=== PATIENT | male | born 1980 | race Hispanic/Latino ===

== ENCOUNTER 2018-05-15 14:55 | Emergency (ER) | payer SELFPAY ==
[2018-05-15 15:16] LABS: BASOPHILS % (AUTO) 0.6 % (0.0-5.0); EOSINOPHILS % (AUTO) 1.2 % (0.0-8.0); HEMATOCRIT 38.3 % (42-54); LYMPHOCYTES % (AUTO) 29.8 % (21.0-51.0); MEAN CORPUSCULAR HEMOGLOBIN 30.2 pg (27.0-33.0); MEAN CORPUSCULAR HGB CONC 33.8 g/dL (32.0-36.0); MEAN CORPUSCULAR VOLUME 89.6 fL (79-99); MONOCYTES % (AUTO) 8.2 % (3.0-13.0); NEUTROPHILS % (AUTO) 60.2 % (40.0-77.0); PLATELET COUNT (AUTO) 185 K/uL (130-400); RED BLOOD CELL COUNT(AUTO) 4.28 MIL/uL (4.50-6.20); RED CELL DISTRIBUTION WIDTH 13.7 % (11.0-15.5); WHITE BLOOD COUNT (AUTO) 4.8 K/uL (4.8-10.8)
[2018-05-15 15:31] LABS: AMPHET/METH SCREEN,URINE NEGATIVE (NEGATIVE); BARBITURATE SCREEN, URINE NEGATIVE (NEGATIVE); BENZODIAZEPINES SCREEN,URINE NEGATIVE (NEGATIVE); CANNABINOID SCREEN,URINE POSITIVE (NEGATIVE); COCAINE SCREEN,URINE POSITIVE (NEGATIVE); OPIATE SCREEN,URINE NEGATIVE (NEGATIVE); PHENCYCLIDINE SCREEN,URINE NEGATIVE (NEGATIVE)
[2018-05-15 15:34] LABS: AMMONIA 27 umol/L (11-32); INR 1.04 (0.85-1.15); PARTIAL THROMBOPLASTIN TIME 28.7 SEC (26.3-35.5); PROTHROMBIN TIME 10.9 SEC (9.6-11.6)
[2018-05-15 15:36] LABS: ALCOHOL, BLOOD 250 mg/dL (0-10)
[2018-05-15 15:46] LABS: CREATININE 0.5 mg/dL (0.5-1.5)
[2018-05-15 15:51] LABS: ALBUMIN 3.8 g/dL (3.5-5.0); BILIRUBIN,TOTAL 0.5 mg/dL (0.2-1.0); TOTAL PROTEIN, SERUM 8.7 g/dL (6.0-8.3)
[2018-05-15] MEDS ORDERED: LABETALOL HCL 5 MG/ML 20ML VIAL IV ONE (16:03)
== END 2018-05-15 19:39 | disposition home or self-care (01) ==
LOC: EDH 14:55
DX: I16.9 Hypertensive crisis, unspecified (principal); K29.00 Acute gastritis without bleeding; F10.20 Alcohol dependence, uncomplicated; F19.10 Other psychoactive substance abuse, uncomplicated; M10.9 Gout, unspecified; I10 Essential (primary) hypertension; Z86.73 Personal history of transient ischemic attack (TIA), and cerebral infarction without residual deficits; Z72.0 Tobacco use
CPT/HCPCS: 36415; 80053; 80305; 82140; 82270; 82550; 84484 ×2; 85025; 85610; 85730; 86850; 86900; 86901; 93005; 96374; 96375; 96376; 99291; G0480; J3490

== ENCOUNTER 2020-04-13 08:13 | Inpatient (IN) | payer SELFPAY ==
[~2020-04-13] VITALS: Ht 185.4 cm; Wt 151.7 kg
[2020-04-13] MEDS ORDERED: DILTIAZEM HCL 5 MG/ML 10 ML VIAL IV ONE ×2 (08:41→16:45)
[2020-04-13] MEDS ORDERED: SODIUM CHLORIDE 0.9% 500ML 500 ML IV ONE (08:43)
[2020-04-13] MEDS ORDERED: DILTIAZEM HCL 125 MG/25 ML VIAL IV ONE ×2 (08:44→21:10)
[2020-04-13 08:57] LABS: BASOPHILS % (AUTO) 0.5 % (0.0-5.0); EOSINOPHILS % (AUTO) 2.9 % (0.0-8.0); LYMPHOCYTES % (AUTO) 18.5 % (21.0-51.0); MEAN CORPUSCULAR HEMOGLOBIN 29.9 pg (27.0-33.0); MEAN CORPUSCULAR HGB CONC 32.4 g/dL (32.0-36.0); MONOCYTES % (AUTO) 14.9 % (3.0-13.0); NEUTROPHILS % (AUTO) 62.7 % (40.0-77.0); PLATELET COUNT (AUTO) 215 K/uL (130-400); RED BLOOD CELL COUNT(AUTO) 4.02 MIL/uL (4.50-6.20); RED CELL DISTRIBUTION WIDTH 12.5 % (11.0-15.5); WHITE BLOOD COUNT (AUTO) 5.6 K/uL (4.8-10.8)
[2020-04-13] MEDS ORDERED: ASPIRIN 325 MG TABLET ONE (08:58)
[2020-04-13 09:03] LABS: CREATININE 0.6 mg/dL (0.5-1.5); POTASSIUM 4.1 mmol/L (3.5-5.1)
[2020-04-13 09:07] LABS: ALBUMIN 3.6 g/dL (3.5-5.0); BILIRUBIN,TOTAL 0.6 mg/dL (0.2-1.0); TOTAL PROTEIN, SERUM 7.9 g/dL (6.0-8.3)
[2020-04-13 09:10] LABS: INR 0.98 (0.85-1.15); PARTIAL THROMBOPLASTIN TIME 28.2 SEC (26.3-35.5); PROTHROMBIN TIME 10.6 SEC (9.6-11.6)
[2020-04-13] MEDS ORDERED: ONDANSETRON HCL 4 MG/2 ML VIAL ONE ×2 (09:15→20:54)
[2020-04-13] MEDS ORDERED: FENTANYL CITRATE PF 50 MCG/1 ML 2ML VIAL ONE (09:17)
[2020-04-13 09:22] LABS: B-TYPE NATRIURETIC PEPTIDE 287 pg/mL (0-100)
[2020-04-13] MEDS ORDERED: METOPROLOL TARTRATE 1 MG/ML 5ML VIAL IV STA (11:03)
[2020-04-13] MEDS ORDERED: POTASSIUM CHLORIDE 10% ELIXIR 20 MEQ/15 ML UDCUP PO PRN (11:15)
[2020-04-13] MEDS ORDERED: MORPHINE SULFATE 4 MG/1ML SYG IV PRN (11:15)
[2020-04-13] MEDS ORDERED: ONDANSETRON HCL 4 MG/2 ML VIAL IV PRN ×2 (11:15→15:00)
[2020-04-13] MEDS ORDERED: PHARMACY COMMUNICATION MISC PRN ×2 (11:15→15:00)
[2020-04-13] MEDS ORDERED: HYDRALAZINE HCL 20 MG/ML VIAL IV PRN (11:15)
[2020-04-13] MEDS ORDERED: LACTULOSE 20 GM/30 ML UDCUP PO PRN (11:15)
[2020-04-13] MEDS ORDERED: LIDOCAINE HCL-MPF 1% 2ML VIAL IV PRN (11:15)
[2020-04-13] MEDS ORDERED: POTASSIUM CHLORIDE 20MEQ/100ML 100 ML IV PRN (11:15)
[2020-04-13] MEDS ORDERED: POTASSIUM CHLORIDE 20 MEQ ERTAB PO PRN (11:15)
[2020-04-13] MEDS ORDERED: HYDROCODONE/ACETAMINOPHEN 5/325 MG TAB PO PRN (11:15)
[2020-04-13] MEDS ORDERED: MORPHINE SULFATE 4 MG/1ML SYG ONE ×4 (11:16→20:55)
[2020-04-13] MEDS ORDERED: METOPROLOL TARTRATE 1 MG/ML 5ML VIAL IV SCH (11:47)
[2020-04-13] MEDS ORDERED: METOPROLOL TARTRATE 1 MG/ML 5ML VIAL IV ONE (12:49)
[2020-04-13] MEDS ORDERED: HYDROCODONE/ACETAMINOPHEN 5/325 MG TAB ONE (13:14)
[2020-04-13] MEDS ORDERED: THIAMINE HCL 100 MG, FOLIC ACID 1 MG, M.V.I. IV [ADULT] 10 ML in SODIUM CHLORIDE 0.9% 1... IV SCH (15:00)
[2020-04-13] MEDS ORDERED: LORAZEPAM 2 MG/ML 1 ML VIAL IVP PRN (15:00)
[2020-04-13 15:31] LABS: MAGNESIUM 1.7 mg/dL (1.80-2.40); PHOSPHORUS 3.9 mg/dL (2.5-4.9)
[2020-04-13] MEDS ORDERED: MAGNESIUM 2GM PREMIX 50ML 50 ML IV NR (17:30)
[2020-04-13] MEDS ORDERED: DILTIAZEM 125MG+100 ML NS 125 ML IV SCH (17:30)
[2020-04-13] MEDS ORDERED: METOPROLOL TARTRATE 25 MG TAB PO SCH ×2 (21:00)
[2020-04-13] MEDS ORDERED: ENOXAPARIN SODIUM 30 MG/0.3 ML SQ SCH (21:00)
[2020-04-13] MEDS ORDERED: ENOXAPARIN SODIUM 120 MG/0.8ML SQ SCH (21:00)
[2020-04-13] MEDS ORDERED: DILTIAZEM HCL 60 MG TABLET ONE (21:06)
[2020-04-13] MEDS ORDERED: ENOXAPARIN SODIUM 120 MG/0.8ML SQ ONE (21:06)
[2020-04-13] MEDS ORDERED: SODIUM CHLORIDE 0.9% 100 ML IV ONE (21:10)
[2020-04-13] MEDS ORDERED: MAGNESIUM 2GM PREMIX 50ML 50 ML IV ONE (21:15)
[2020-04-13] MEDS ORDERED: ALBUTEROL INHALER 90MCG/INH IH PRN (21:15)
[2020-04-13] MEDS ORDERED: ALBUTEROL SULFATE 0.083% 2.5 MG/3 ML INH IH PRN (21:15)
[2020-04-13] MEDS ORDERED: ALBUTEROL INHALER 90MCG/INH IH ONE (21:40)
[2020-04-13] MEDS: DILTIAZEM HCL 60 MG TABLET PO SCH (22:00)
[2020-04-13 22:07] LABS: AMPHET/METH SCREEN,URINE NEGATIVE (NEGATIVE); BARBITURATE SCREEN, URINE NEGATIVE (NEGATIVE); BENZODIAZEPINES SCREEN,URINE POSITIVE (NEGATIVE); CANNABINOID SCREEN,URINE POSITIVE (NEGATIVE); COCAINE SCREEN,URINE NEGATIVE (NEGATIVE); OPIATE SCREEN,URINE POSITIVE (NEGATIVE); PHENCYCLIDINE SCREEN,URINE NEGATIVE (NEGATIVE)
[2020-04-13 22:25] VITALS: BP 107/59
[2020-04-13 23:40] VITALS: BP 107/59
[2020-04-14 04:54] VITALS: BP 134/77
[2020-04-14] MEDS: DILTIAZEM HCL 60 MG TABLET PO SCH (05:53)
[2020-04-14 06:51] LABS: BASOPHILS % (AUTO) 0.6 % (0.0-5.0); EOSINOPHILS % (AUTO) 1.7 % (0.0-8.0); HEMATOCRIT 34.8 % (42-54); LYMPHOCYTES % (AUTO) 14.3 % (21.0-51.0); MEAN CORPUSCULAR HEMOGLOBIN 29.6 pg (27.0-33.0); MEAN CORPUSCULAR HGB CONC 31.3 g/dL (32.0-36.0); MEAN CORPUSCULAR VOLUME 94.6 fL (79-99); MONOCYTES % (AUTO) 12.8 % (3.0-13.0); NEUTROPHILS % (AUTO) 70.3 % (40.0-77.0); PLATELET COUNT (AUTO) 221 K/uL (130-400); RED BLOOD CELL COUNT(AUTO) 3.68 MIL/uL (4.50-6.20); RED CELL DISTRIBUTION WIDTH 12.8 % (11.0-15.5); WHITE BLOOD COUNT (AUTO) 6.6 K/uL (4.8-10.8)
[2020-04-14 07:09] LABS: CREATININE 0.6 mg/dL (0.5-1.5); MAGNESIUM 1.7 mg/dL (1.80-2.40); POTASSIUM 4.4 mmol/L (3.5-5.1)
[2020-04-14] MEDS ORDERED: NITROGLYCERIN 50 MG/D5% WATER 1 BOT ONE (07:11)
[2020-04-14] MEDS ORDERED: AMIODARONE HCL 50 MG/ML 3 ML VIAL ONE (07:11)
--- NOTE | 2020-04-14 07:30 | NUR ---
ASSESSMENT ENCOUNTERED PT A&OX3, CALM COOPERATIVE AND DOES NOT APPEAR TO BE IN ANY DISTRESS NOR ANY NEURO DEFICITS PRESENT. PT DENIES SOB, NAUSEA BUT DOES C/O LEFT RIB PAIN THAT PATIENT STATES DUE TO FALL. PT IS AMBULATORY, GAIT STEADY AND STRONG WITH STAND BY ASSIST. TELE MONITOR DISPLAYS ATRIAL FIBRILLATION WITH RATE OF 80-90 BEATS PER MINUTE, CARDIZEM DRIP DISCONTINUED. CALL LIGHT WITHIN REACH.
[2020-04-14 08:01] VITALS: BP 135/75
[2020-04-14] MEDS ORDERED: THIAMINE HCL 100 MG/ML 2ML VIAL IM SCH (09:00)
[2020-04-14] MEDS ORDERED: FOLIC ACID 1 MG TABLET PO SCH (09:00)
[2020-04-14] MEDS ORDERED: MULTIVITAMIN TABLET PO SCH (09:00)
--- NOTE | 2020-04-14 10:17 | NUR ---
DCP CM spoke to pt discussed dc plans. Pt is independent prior to admission, lives at home with spouse and child. Pt has a cane uses occasionally. Denies any other equipments/services. Feels safe to go back home, still drives, spouse able to assist with transportation and needs as necessary. DC plan to home once stable. CM to cont to follow up. Addendum: 04/14/20 at 1020 by OSVALDO COOPER LVN CM Amended: Links added.
--- NOTE | 2020-04-14 12:05 | NUR ---
SS-Referral for positive UDS, history of ETOH abuse. SW met wit pt. who is awake, alert, calm and cooperative. Pt. reports that he is admitted for rib fractures after a fall at home. Pt. resides at home with spouse and adult child. 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 Pt. reports decades use of ETOH and marijuana use when available. According to pt., he has attended AA meetings and currently in Anger Management class under conditions of his probation for altercation with law enforcement. Pt. reports that he has gone through periods of sobriety but eventually "goes off". SW provided information on Substance Use Disorder Services through [facility]; pt. receptive to receiving pamphlets/information. Pt. also provided with [facility]. Pt. denied suicidal thoughts, ideations or depressive symptoms. Pt. reported a strong support system among family and friends. All utilities reportedly connected in the home and spouse will provide transportation home upon discharge. Pt. reported that Financial Counselors have already spoken with him regarding assistance. Pt. denied/verbalized no SS needs or concerns.
[2020-04-14] MEDS ORDERED: MAGNESIUM 2GM PREMIX 50ML 50 ML IV SCH (12:12)
[2020-04-14] MEDS ORDERED: SODIUM BICARB 50MEQ 50ML VIAL ONE (12:47)
[2020-04-14] MEDS ORDERED: NOREPINEPHRINE BITARTRATE 1 MG/1 ML ML IV ONE (12:48)
--- NOTE | 2020-04-14 15:00 | NUR ---
DISCHARGE INSTRUCTIONS GIVEN, PIV REMOVED AND INTACT, DISCHARGED HOME TO FAMILY VEHICLE VIA WHEELCHAIR.
== END 2020-04-14 15:00 | disposition home or self-care (01) | DRG 309 ==
LOC: EDH 08:13 → OBSVTOIN 08:14 → EDHIP 08:14 → 4CH 22:26
PROVIDERS: ADMIT Hospitalist; ATTEND Hospitalist
DX: I48.91 Unspecified atrial fibrillation (principal); S22.42XA Multiple fractures of ribs, left side, initial encounter for closed fracture; Z68.41 Body mass index [BMI] 40.0-44.9, adult; I24.8 Other forms of acute ischemic heart disease; I10 Essential (primary) hypertension; W06.XXXA Fall from bed, initial encounter; F12.10 Cannabis abuse, uncomplicated; F11.10 Opioid abuse, uncomplicated; F15.10 Other stimulant abuse, uncomplicated; M10.9 Gout, unspecified; E66.01 Morbid (severe) obesity due to excess calories; Y93.89 Activity, other specified; Y92.89 Other specified places as the place of occurrence of the external cause; Y99.8 Other external cause status; Z82.3 Family history of stroke; Z82.49 Family history of ischemic heart disease and other diseases of the circulatory system; Z83.3 Family history of diabetes mellitus; Z86.73 Personal history of transient ischemic attack (TIA), and cerebral infarction without residual deficits; Z87.891 Personal history of nicotine dependence
CPT/HCPCS: 36415; 71045; 71250; 73030; 74176; 80048; 80053; 80305; 82550; 83735; 83880; 84100; 84443; 84484; 85025; 85610; 85730; 93005; 93306; 93356; 94664; 99291; G0378; J0282; J1650; J2270; J2405; J3010; J3411; J3475; J3490; J7030; J7040

== ENCOUNTER 2021-02-21 07:26 | Emergency (ER) | payer SELFPAY ==
[~2021-02-21] VITALS: Ht 185.4 cm; Wt 136.1 kg
[2021-02-21 07:28] VITALS: BP 143/98
[2021-02-21 08:24] LABS: BASOPHILS % (AUTO) 0.7 % (0.0-5.0); EOSINOPHILS % (AUTO) 1.4 % (0.0-8.0); HEMATOCRIT 38.1 % (42-54); LYMPHOCYTES % (AUTO) 23.5 % (21.0-51.0); MEAN CORPUSCULAR HEMOGLOBIN 25.7 pg (27.0-33.0); MEAN CORPUSCULAR HGB CONC 30.4 g/dL (32.0-36.0); MEAN CORPUSCULAR VOLUME 84.3 fL (79-99); MONOCYTES % (AUTO) 8.7 % (3.0-13.0); NEUTROPHILS % (AUTO) 65.5 % (40.0-77.0); PLATELET COUNT (AUTO) 252 K/uL (130-400); RED BLOOD CELL COUNT(AUTO) 4.52 MIL/uL (4.50-6.20); RED CELL DISTRIBUTION WIDTH 17.4 % (11.0-15.5); WHITE BLOOD COUNT (AUTO) 5.9 K/uL (4.8-10.8)
[2021-02-21 08:28] VITALS: BP 133/95
[2021-02-21 08:33] LABS: INR 1.32 (0.85-1.15)
[2021-02-21 08:34] LABS: PARTIAL THROMBOPLASTIN TIME 30.1 SEC (26.3-35.5)
[2021-02-21 08:42] LABS: AMPHET/METH SCREEN,URINE NEGATIVE (NEGATIVE); APPEARANCE,URINE Clear (CLEAR); BARBITURATE SCREEN, URINE NEGATIVE (NEGATIVE); BENZODIAZEPINES SCREEN,URINE NEGATIVE (NEGATIVE); BILIRUBIN,URINE Negative (NEGATIVE); CANNABINOID SCREEN,URINE POSITIVE (NEGATIVE); COCAINE SCREEN,URINE POSITIVE (NEGATIVE); COLOR,URINE Dark Yellow (YELLOW); GLUCOSE, URINE (UA) Negative (NEGATIVE); KETONES,URINE Negative (NEGATIVE); LEUKOCYTE ESTERASE ,URINE Negative (NEGATIVE); NITRATE,URINE Negative (NEGATIVE); OCCULT BLOOD,URINE Negative (NEGATIVE); OPIATE SCREEN,URINE NEGATIVE (NEGATIVE); PHENCYCLIDINE SCREEN,URINE NEGATIVE (NEGATIVE); PROTEIN,URINE Negative (NEGATIVE); UROBILINOGEN,URINE >=8.0 mg/dL (0.2-1.0)
[2021-02-21 08:45] LABS: ALBUMIN 3.5 g/dL (3.5-5.0); BILIRUBIN,TOTAL 1.4 mg/dL (0.2-1.0); CREATININE 0.7 mg/dL (0.5-1.5); TOTAL PROTEIN, SERUM 7.9 g/dL (6.0-8.3); TROPONIN I 0.04 ng/mL (0.00-0.06)
[2021-02-21 08:47] LABS: B-TYPE NATRIURETIC PEPTIDE 478 pg/mL (0-100)
[2021-02-21 08:51] LABS: BACTERIA,URINE Rare /HPF (None Seen); RBC,URINE 0-1 /HPF (0-1); WBC,URINE 0-1 /HPF (0-1)
[2021-02-21 08:52] LABS: SQUAMOUS EPITHELIAL CELL,UR Few /HPF (0-2)
[2021-02-21 08:52] LABS: POTASSIUM 3.9 mmol/L (3.5-5.1)
[2021-02-21] MEDS ORDERED: FUROSEMIDE 40MG VIAL IV SCH (09:00)
[2021-02-21 09:29] VITALS: BP 132/88
[2021-02-21 10:32] VITALS: BP 130/90
[2021-02-21] MEDS ORDERED: DILT120C12 PO (11:00)
[2021-02-21] MEDS ORDERED: APIX5TAB PO (11:00)
[2021-02-21] MEDS ORDERED: FURO20TA6 PO (11:01)
== END 2021-02-21 11:28 | disposition home or self-care (01) ==
LOC: EDH 07:26
DX: I48.91 Unspecified atrial fibrillation (principal); F19.10 Other psychoactive substance abuse, uncomplicated; I11.0 Hypertensive heart disease with heart failure; I50.9 Heart failure, unspecified; E11.9 Type 2 diabetes mellitus without complications; F41.9 Anxiety disorder, unspecified; E66.01 Morbid (severe) obesity due to excess calories; Z79.01 Long term (current) use of anticoagulants; Z79.899 Other long term (current) drug therapy
CPT/HCPCS: 36415; 71045; 80053; 80305; 81001; 82550; 83874; 83880; 84484; 85025; 85610; 85730; 93005; 96374; 99285; J1940

== ENCOUNTER 2021-11-01 13:56 | Emergency (ER) | payer OTHER ==
[~2021-11-01] VITALS: Ht 182.9 cm; Wt 141.1 kg
[~2021-11-01 13:56] MED LIST: APIX5TAB PO; CLIN-141 PO; DILT120C12 PO; FURO20TA6 PO
[2021-11-01 14:20] LABS: BASOPHILS % (AUTO) 0.8 % (0.0-5.0); EOSINOPHILS % (AUTO) 2.3 % (0.0-8.0); HEMATOCRIT 46.6 % (42-54); LYMPHOCYTES % (AUTO) 37.3 % (21.0-51.0); MEAN CORPUSCULAR HEMOGLOBIN 25.3 pg (27.0-33.0); MEAN CORPUSCULAR HGB CONC 30.3 g/dL (32.0-36.0); MEAN CORPUSCULAR VOLUME 83.5 fL (79-99); MONOCYTES % (AUTO) 8.9 % (3.0-13.0); NEUTROPHILS % (AUTO) 50.5 % (40.0-77.0); PLATELET COUNT (AUTO) 196 K/uL (130-400); RED BLOOD CELL COUNT(AUTO) 5.58 MIL/uL (4.50-6.20); RED CELL DISTRIBUTION WIDTH 18.9 % (11.0-15.5); WHITE BLOOD COUNT (AUTO) 5.2 K/uL (4.8-10.8)
[2021-11-01 14:24] LABS: APPEARANCE,URINE Clear (CLEAR); BILIRUBIN,URINE Negative (NEGATIVE); COLOR,URINE Yellow (YELLOW); GLUCOSE, URINE (UA) Negative (NEGATIVE); KETONES,URINE Negative (NEGATIVE); LEUKOCYTE ESTERASE ,URINE Negative (NEGATIVE); NITRATE,URINE Negative (NEGATIVE); OCCULT BLOOD,URINE Negative (NEGATIVE); PROTEIN,URINE Negative (NEGATIVE)
[2021-11-01 14:29] LABS: CREATININE 0.6 mg/dL (0.5-1.5); POTASSIUM 4.7 mmol/L (3.5-5.1)
[2021-11-01 14:34] LABS: ALBUMIN 3.5 g/dL (3.5-5.0); BILIRUBIN,TOTAL 1.1 mg/dL (0.2-1.0); TOTAL PROTEIN, SERUM 8.1 g/dL (6.0-8.3)
[2021-11-01 15:07] VITALS: BP 107/83
[2021-11-01] MEDS ORDERED: MUPI22OI2 TP (15:33)
== END 2021-11-01 15:46 | disposition home or self-care (01) ==
LOC: EDH 13:56
DX: L03.116 Cellulitis of left lower limb (principal); I48.91 Unspecified atrial fibrillation; I11.0 Hypertensive heart disease with heart failure; I50.9 Heart failure, unspecified
CPT/HCPCS: 36415; 73590; 80053; 81003; 83605; 85025; 87040; 93971

== ENCOUNTER 2022-05-19 11:39 | Emergency (ER) | payer OTHER ==
[~2022-05-19] VITALS: Ht 182.9 cm; Wt 124.7 kg
[~2022-05-19 11:39] MED LIST changes: +MUPI22OI2 TP
[2022-05-19 11:51] VITALS: BP 124/84
[2022-05-19] MEDS ORDERED: ACETAMINOPHEN 500 MG TABLET PO ONE (13:00)
[2022-05-19 13:18] LABS: BASOPHILS % (AUTO) 0.2 % (0.0-5.0); EOSINOPHILS % (AUTO) 0.1 % (0.0-8.0); LYMPHOCYTES % (AUTO) 13.4 % (21.0-51.0); MEAN CORPUSCULAR HEMOGLOBIN 31.3 pg (27.0-33.0); MEAN CORPUSCULAR HGB CONC 34.8 g/dL (32.0-36.0); MEAN CORPUSCULAR VOLUME 89.8 fL (79-99); MONOCYTES % (AUTO) 4.6 % (3.0-13.0); NEUTROPHILS % (AUTO) 81.2 % (40.0-77.0); PLATELET COUNT (AUTO) 270 K/uL (130-400); RED BLOOD CELL COUNT(AUTO) 5.12 MIL/uL (4.50-6.20); RED CELL DISTRIBUTION WIDTH 11.7 % (11.0-15.5); WHITE BLOOD COUNT (AUTO) 9.5 K/uL (4.8-10.8)
[2022-05-19 13:42] LABS: CREATININE 0.7 mg/dL (0.5-1.5); POTASSIUM 4.2 mmol/L (3.5-5.1)
[2022-05-19 13:44] LABS: CRP QUANTITATIVE 5.9 mg/L (0.00-9.0); TOTAL PROTEIN, SERUM 8.6 g/dL (6.0-8.3)
== END 2022-05-19 14:35 | disposition home or self-care (01) ==
LOC: EDH 11:39
DX: S81.802A Unspecified open wound, left lower leg, initial encounter (principal); I48.91 Unspecified atrial fibrillation; I11.0 Hypertensive heart disease with heart failure; I50.9 Heart failure, unspecified; E66.01 Morbid (severe) obesity due to excess calories; Z68.37 Body mass index [BMI] 37.0-37.9, adult; Z79.899 Other long term (current) drug therapy; Z79.01 Long term (current) use of anticoagulants; X58.XXXA Exposure to other specified factors, initial encounter; Y93.89 Activity, other specified; Y92.89 Other specified places as the place of occurrence of the external cause; Y99.8 Other external cause status
CPT/HCPCS: 36415; 80053; 83605; 85025; 86140; 87070; 87076

== ENCOUNTER 2022-07-29 20:09 | Emergency (ER) | payer OTHER ==
[~2022-07-29] VITALS: Ht 185.4 cm; Wt 113.4 kg
[2022-07-29 20:49] LABS: BASOPHILS % (AUTO) 0.5 % (0.0-5.0); HEMATOCRIT 39.2 % (42-54); LYMPHOCYTES % (AUTO) 22.2 % (21.0-51.0); MEAN CORPUSCULAR HEMOGLOBIN 32.4 pg (27.0-33.0); MEAN CORPUSCULAR HGB CONC 35.7 g/dL (32.0-36.0); MEAN CORPUSCULAR VOLUME 90.7 fL (79-99); MONOCYTES % (AUTO) 16.1 % (3.0-13.0); NEUTROPHILS % (AUTO) 59.5 % (40.0-77.0); PLATELET COUNT (AUTO) 134 K/uL (130-400); RED BLOOD CELL COUNT(AUTO) 4.32 MIL/uL (4.50-6.20); RED CELL DISTRIBUTION WIDTH 11.9 % (11.0-15.5); WHITE BLOOD COUNT (AUTO) 4.1 K/uL (4.8-10.8)
[2022-07-29 21:01] LABS: ALBUMIN 3.6 g/dL (3.5-5.0); CREATININE 0.7 mg/dL (0.5-1.5); POTASSIUM 3.2 mmol/L (3.5-5.1)
[2022-07-29 21:06] LABS: TOTAL PROTEIN, SERUM 6.6 g/dL (6.0-8.3)
[2022-07-29 21:28] LABS: AMPHET/METH SCREEN,URINE NEGATIVE (NEGATIVE); BARBITURATE SCREEN, URINE NEGATIVE (NEGATIVE); BENZODIAZEPINES SCREEN,URINE POSITIVE (NEGATIVE); CANNABINOID SCREEN,URINE POSITIVE (NEGATIVE); COCAINE SCREEN,URINE NEGATIVE (NEGATIVE); OPIATE SCREEN,URINE NEGATIVE (NEGATIVE); PHENCYCLIDINE SCREEN,URINE NEGATIVE (NEGATIVE)
[2022-07-30] MEDS ORDERED: POTASSIUM BICARB/CIT AC 25 MEQ TABLET.EFF PO ONE (01:00)
[2022-07-30 01:47] VITALS: BP 149/99
== END 2022-07-30 01:55 | disposition home or self-care (01) ==
LOC: EDH 20:09
DX: E87.6 Hypokalemia (principal); E87.1 Hypo-osmolality and hyponatremia; I48.91 Unspecified atrial fibrillation; F10.10 Alcohol abuse, uncomplicated; I11.0 Hypertensive heart disease with heart failure; I50.9 Heart failure, unspecified; M10.9 Gout, unspecified; Z79.899 Other long term (current) drug therapy; Z79.01 Long term (current) use of anticoagulants; Y90.9 Presence of alcohol in blood, level not specified
CPT/HCPCS: 36415; 70450; 71045; 80053; 80305; 84484; 85025; 93005

== ENCOUNTER 2023-02-15 21:44 | Inpatient (IN) | payer OTHER ==
[~2023-02-15] VITALS: Ht 172.7 cm; Wt 114.8 kg
[2023-02-15 22:46] LABS: BASOPHILS % (AUTO) 0.7 % (0.0-5.0); EOSINOPHILS % (AUTO) 0.7 % (0.0-8.0); HEMATOCRIT 42.2 % (42-54); MEAN CORPUSCULAR HEMOGLOBIN 31.4 pg (27.0-33.0); MEAN CORPUSCULAR HGB CONC 34.1 g/dL (32.0-36.0); MEAN CORPUSCULAR VOLUME 91.9 fL (79-99); MONOCYTES % (AUTO) 8.5 % (3.0-13.0); NEUTROPHILS % (AUTO) 50.9 % (40.0-77.0); PLATELET COUNT (AUTO) 166 K/uL (130-400); RED BLOOD CELL COUNT(AUTO) 4.59 MIL/uL (4.50-6.20); RED CELL DISTRIBUTION WIDTH 13.6 % (11.0-15.5); WHITE BLOOD COUNT (AUTO) 4.3 K/uL (4.8-10.8)
[2023-02-15 23:17] LABS: B-TYPE NATRIURETIC PEPTIDE 43 pg/mL (0-100)
[2023-02-15 23:28] LABS: INR 1.06 (0.85-1.15); PROTHROMBIN TIME 12.2 SEC (9.6-11.6)
[2023-02-15 23:28] LABS: APPEARANCE,URINE CLEAR (CLEAR); BILIRUBIN,URINE NEGATIVE (NEGATIVE); COLOR,URINE COLORLESS (YELLOW); GLUCOSE, URINE (UA) NEGATIVE (NEGATIVE); KETONES,URINE NEGATIVE (NEGATIVE); LEUKOCYTE ESTERASE ,URINE NEGATIVE Leu/uL (NEGATIVE); NITRATE,URINE NEGATIVE (NEGATIVE); OCCULT BLOOD,URINE NEGATIVE (NEGATIVE); PROTEIN,URINE NEGATIVE (NEGATIVE); UROBILINOGEN,URINE 0.2 mg/dL (0.2-1.0)
[2023-02-15 23:40] LABS: CARBON DIOXIDE 25 mmol/L (21-32); CHLORIDE 98 mmol/L (101-111); CREATININE 0.6 mg/dL (0.5-1.5); GLOMERULAR FILTR. RATE CALC 122 mL/min (>90); GLUCOSE,RANDOM 101 mg/dL (70-105); POTASSIUM 4.3 mmol/L (3.5-5.1); SODIUM SERUM 136 mmol/L (136-145); UREA NITROGEN, BLOOD 1 mg/dL (7-18)
[2023-02-15 23:46] LABS: ALANINE AMINOTRANSFERASE 27 U/L (12-78); ALBUMIN 3.6 g/dL (3.5-5.0); ASPARTATE AMINOTRANSFERASE 27 U/L (10-37); TOTAL PROTEIN, SERUM 7.4 g/dL (6.0-8.3)
[2023-02-15 23:47] LABS: ACETAMINOPHEN < 1 mcg/mL (10-29); SALICYLATE < 2.8 mg/dL (2.8-20.0)
[2023-02-16] MEDS ORDERED: DILTIAZEM 25MG INJ IVP ONE (01:00)
[2023-02-16] MEDS ORDERED: AMIODARONE 150MG VIAL IV STA (01:29)
[2023-02-16] MEDS ORDERED: DILTIAZEM 125 MG/25 ML INJ IV ONE ×2 (01:40→05:38)
[2023-02-16] MEDS: DILTIAZEM 125 MG/25 ML INJ 125 MG in 0.9%NACL 100ML 100 ML IV SCH (01:48)
[2023-02-16] MEDS ORDERED: LORAZEPAM 2 MG/ML 1 ML VIAL ONE (01:55)
[2023-02-16] MEDS ORDERED: DILTIAZEM 125 MG/25 ML INJ 125 MG in 0.9%NACL 100ML 100 ML IV SCH (02:00)
[2023-02-16] MEDS: DEXTROSE 5 % AND 0.9 % NACL 1,000 ML IV SCH ×3 (02:26→18:54)
[2023-02-16] MEDS ORDERED: DiphenhydrAMINE HCL 50 MG/ML VIAL IV PRN (02:30)
[2023-02-16] MEDS ORDERED: LACTULOSE 20 GM/30 ML UDCUP PO PRN (02:30)
[2023-02-16] MEDS ORDERED: 0.9%NACL 1000ML 1,000 ML IV ONE (02:30)
[2023-02-16] MEDS ORDERED: MAG/ALUM/SIMETH 30 ML UDCUP PO PRN (02:30)
[2023-02-16] MEDS ORDERED: ONDANSETRON 4MG INJ IV PRN (02:30)
[2023-02-16] MEDS ORDERED: ACETAMINOPHEN 325 MG TAB PO PRN (02:30)
[2023-02-16] MEDS ORDERED: LORAZEPAM 2 MG/ML 1 ML VIAL IVP ONE ×2 (03:30)
[2023-02-16] MEDS ORDERED: ENOXAPARIN SODIUM 40 MG/0.4 ML SYRINGE SQ SCH (09:00)
[2023-02-16] MEDS: PANTOPRAZOLE 40 MG/VIAL IVP SCH (09:35)
[2023-02-16] MEDS: ASPIRIN 81 MG EC TAB PO SCH (09:36)
[2023-02-16] MEDS: CHLORDIAZEPOXIDE HCL 25 MG CAP PO SCH ×3 (09:36→20:16)
[2023-02-16] MEDS: M.V.I. IV [ADULT] 10 ML, FOLIC ACID 1 MG, THIAMINE HCL 100 MG in 0.9%NACL 1000ML 1,000 ML IV SCH (10:05)
[2023-02-16] MEDS: LORAZEPAM 2 MG/ML 1 ML VIAL IVP PRN ×2 (12:37→19:21)
[2023-02-16] MEDS ORDERED: DILT180T12 PO (13:54)
[2023-02-16] MEDS ORDERED: METO-391 PO (13:54)
[2023-02-16] MEDS ORDERED: FOLI0.4T6 PO (13:54)
[2023-02-16] MEDS ORDERED: SACU1TAB PO (13:54)
[2023-02-16] MEDS ORDERED: FURO20TA4 PO (13:54)
[2023-02-16] MEDS ORDERED: DILT60TA3 PO (13:54)
[2023-02-16] MEDS ORDERED: WARF-57 PO (13:54)
[2023-02-16] MEDS ORDERED: VITA-16 PO (13:54)
[2023-02-16] MEDS ORDERED: PROMETHAZINE HCL 25 MG/ML 1ML AMPULE IM ONE (15:06)
[2023-02-16] MEDS ORDERED: WARFARIN SODIUM 7.5 MG TAB PO SCH (16:00)
[2023-02-16] MEDS: ENOXAPARIN SODIUM 80 MG/0.8 ML SQ SCH (20:16)
[2023-02-16] MEDS: METOPROLOL SUCCINATE 50 MG TAB.SR.24H PO SCH (20:16)
[2023-02-16] MEDS: SACUBITRIL/VALSARTAN 1 EACH TABLET PO SCH (20:16)
[2023-02-16] MEDS: ACETAMINOPHEN 325 MG TAB PO PRN (22:54)
[2023-02-17 00:55] VITALS: BP 136/85
[2023-02-17] MEDS ORDERED: DILTIAZEM 125MG+100 ML NS 125 ML IV ONE ×2 (02:44→03:03)
[2023-02-17] MEDS: DEXTROSE 5 % AND 0.9 % NACL 1,000 ML IV SCH ×3 (04:04→20:45)
[2023-02-17] MEDS: DILTIAZEM 125 MG/25 ML INJ 125 MG in 0.9%NACL 100ML 100 ML IV SCH ×2 (04:04→20:47)
[2023-02-17 04:59] VITALS: BP 131/97
[2023-02-17 07:29] VITALS: BP 135/80
[2023-02-17] MEDS: METOPROLOL SUCCINATE 50 MG TAB.SR.24H PO SCH (09:43)
[2023-02-17] MEDS: ASPIRIN 81 MG EC TAB PO SCH (09:43)
[2023-02-17] MEDS: ENOXAPARIN SODIUM 80 MG/0.8 ML SQ SCH (09:43)
[2023-02-17] MEDS: PANTOPRAZOLE 40 MG/VIAL IVP SCH (09:43)
[2023-02-17] MEDS: SACUBITRIL/VALSARTAN 1 EACH TABLET PO SCH ×2 (09:44→20:44)
[2023-02-17] MEDS: CHLORDIAZEPOXIDE HCL 25 MG CAP PO SCH ×3 (09:44→20:44)
[2023-02-17] MEDS ORDERED: WARFARIN SODIUM 7.5 MG TAB PO ONE (10:00)
[2023-02-17] MEDS: M.V.I. IV [ADULT] 10 ML, FOLIC ACID 1 MG, THIAMINE HCL 100 MG in 0.9%NACL 1000ML 1,000 ML IV SCH (10:02)
[2023-02-17 11:17] LABS: BASOPHILS % (AUTO) 0.3 % (0.0-5.0); EOSINOPHILS % (AUTO) 0.7 % (0.0-8.0); HEMATOCRIT 39.2 % (42-54); LYMPHOCYTES % (AUTO) 11.1 % (21.0-51.0); MEAN CORPUSCULAR HEMOGLOBIN 31.8 pg (27.0-33.0); MEAN CORPUSCULAR HGB CONC 33.7 g/dL (32.0-36.0); MEAN CORPUSCULAR VOLUME 94.5 fL (79-99); MONOCYTES % (AUTO) 8.7 % (3.0-13.0); PLATELET COUNT (AUTO) 146 K/uL (130-400); RED BLOOD CELL COUNT(AUTO) 4.15 MIL/uL (4.50-6.20); RED CELL DISTRIBUTION WIDTH 13.7 % (11.0-15.5); WHITE BLOOD COUNT (AUTO) 6.1 K/uL (4.8-10.8)
[2023-02-17 11:23] LABS: CREATININE 0.7 mg/dL (0.5-1.5); POTASSIUM 3.5 mmol/L (3.5-5.1)
[2023-02-17 11:30] LABS: ALBUMIN 3.3 g/dL (3.5-5.0); MAGNESIUM 1.3 mg/dL (1.80-2.40); TOTAL PROTEIN, SERUM 6.8 g/dL (6.0-8.3)
[2023-02-17 11:58] VITALS: BP 114/78
[2023-02-17] MEDS ORDERED: POTASSIUM CHLORIDE 20MEQ/100ML 100 ML IV PRN (12:00)
[2023-02-17] MEDS ORDERED: POTASSIUM CHLORIDE 10% ELIXIR 20 MEQ/15 ML UDCUP PO PRN (12:00)
[2023-02-17] MEDS: KCL 20 MEQ ERTAB PO PRN ×2 (12:13→14:21)
[2023-02-17] MEDS: KETOROLAC 15MG/ML VIAL (15MG/ML) IV PRN ×2 (12:13→18:13)
[2023-02-17] MEDS: MAGNESIUM 2GM PREMIX 50ML 50 ML IV PRN (12:14)
[2023-02-17 16:52] VITALS: BP 135/99
[2023-02-17 19:30] VITALS: BP 108/94
[2023-02-17] MEDS: ENOXAPARIN SODIUM 120 MG/0.8ML SQ SCH (20:44)
[2023-02-17] MEDS: COLCHICINE 0.6 MG TABLET PO SCH (20:44)
[2023-02-17] MEDS: ACETAMINOPHEN 325 MG TAB PO PRN (20:46)
[2023-02-18] VITALS: BP 131/76
[2023-02-18] MEDS: DEXTROSE 5 % AND 0.9 % NACL 1,000 ML IV SCH ×3 (02:30→17:55)
[2023-02-18 03:43] VITALS: BP 130/74
[2023-02-18 04:09] LABS: ALBUMIN 3.1 g/dL (3.5-5.0); CREATININE 0.6 mg/dL (0.5-1.5); MAGNESIUM 1.8 mg/dL (1.80-2.40); POTASSIUM 3.6 mmol/L (3.5-5.1); TOTAL PROTEIN, SERUM 6.9 g/dL (6.0-8.3)
[2023-02-18 07:32] VITALS: BP 122/67
[2023-02-18] MEDS: COLCHICINE 0.6 MG TABLET PO SCH ×2 (07:55→21:12)
[2023-02-18] MEDS: MAGNESIUM 2GM PREMIX 50ML 50 ML IV PRN (07:55)
[2023-02-18] MEDS: KCL 20 MEQ ERTAB PO PRN ×2 (07:55→16:08)
[2023-02-18] MEDS: SACUBITRIL/VALSARTAN 1 EACH TABLET PO SCH ×2 (07:55→21:12)
[2023-02-18] MEDS: ASPIRIN 81 MG EC TAB PO SCH (07:55)
[2023-02-18] MEDS: PANTOPRAZOLE 40 MG/VIAL IVP SCH (07:55)
[2023-02-18] MEDS: ENOXAPARIN SODIUM 120 MG/0.8ML SQ SCH (07:57)
[2023-02-18] MEDS: CHLORDIAZEPOXIDE HCL 25 MG CAP PO SCH ×3 (07:59→21:12)
[2023-02-18] MEDS ORDERED: WARFARIN SODIUM 7.5 MG TAB PO SCH (09:00)
[2023-02-18 09:09] LABS: INR 1.11 (0.85-1.15); PROTHROMBIN TIME 12.8 SEC (9.6-11.6)
[2023-02-18 09:11] LABS: PARTIAL THROMBOPLASTIN TIME 37.5 SEC (26.3-35.5)
[2023-02-18] MEDS: SOLU-MEDROL 40MG VIAL IVP SCH (09:36)
[2023-02-18] MEDS: M.V.I. IV [ADULT] 10 ML, FOLIC ACID 1 MG, THIAMINE HCL 100 MG in 0.9%NACL 1000ML 1,000 ML IV SCH (09:37)
[2023-02-18] MEDS: KETOROLAC 15MG/ML VIAL (15MG/ML) IV PRN (10:27)
[2023-02-18] MEDS ORDERED: ARTIFICAL TEARS SOL 15 ML OU ONE (11:00)
[2023-02-18 12:01] VITALS: BP 118/77
[2023-02-18] MEDS: DILTIAZEM 125 MG/25 ML INJ 125 MG in 0.9%NACL 100ML 100 ML IV SCH (14:17)
[2023-02-18 16:09] VITALS: BP 133/88
[2023-02-18 19:00] VITALS: BP 128/72
[2023-02-18] MEDS: APIXABAN 5 MG TABLET PO SCH (21:13)
[2023-02-19] VITALS: BP 122/71
[2023-02-19] MEDS: DEXTROSE 5 % AND 0.9 % NACL 1,000 ML IV SCH (02:50)
[2023-02-19 03:00] VITALS: BP 114/75
[2023-02-19 07:25] VITALS: BP 121/83
[2023-02-19] MEDS: DILTIAZEM 125 MG/25 ML INJ 125 MG in 0.9%NACL 100ML 100 ML IV SCH (07:31)
[2023-02-19] MEDS: ASPIRIN 81 MG EC TAB PO SCH (08:13)
[2023-02-19] MEDS: SOLU-MEDROL 40MG VIAL IVP SCH (08:13)
[2023-02-19] MEDS: APIXABAN 5 MG TABLET PO SCH (08:13)
[2023-02-19] MEDS: PANTOPRAZOLE 40 MG/VIAL IVP SCH (08:13)
[2023-02-19] MEDS: COLCHICINE 0.6 MG TABLET PO SCH ×2 (08:13→20:38)
[2023-02-19] MEDS: SACUBITRIL/VALSARTAN 1 EACH TABLET PO SCH ×2 (08:14→20:38)
[2023-02-19] MEDS: CHLORDIAZEPOXIDE HCL 25 MG CAP PO SCH ×3 (08:14→20:38)
[2023-02-19] MEDS ORDERED: METOPROLOL SUCCINATE 50 MG TAB.SR.24H PO ONE (09:00)
[2023-02-19] MEDS: POTASSIUM CHLORIDE 10MEQ SR TAB PO SCH (09:10)
[2023-02-19] MEDS: FUROSEMIDE 20 MG TABLET PO SCH (09:10)
[2023-02-19 09:32] LABS: INR 1.08 (0.85-1.15); PROTHROMBIN TIME 12.5 SEC (9.6-11.6)
[2023-02-19 09:34] LABS: PARTIAL THROMBOPLASTIN TIME 33.8 SEC (26.3-35.5)
[2023-02-19 10:52] VITALS: BP 127/80
[2023-02-19] MEDS: WARFARIN SODIUM 7.5 MG TAB PO SCH (15:42)
[2023-02-19 16:07] VITALS: BP 128/81
[2023-02-19 19:00] VITALS: BP 142/100
[2023-02-19] MEDS: FAMOTIDINE 20MG TAB PO SCH (20:38)
[2023-02-20] VITALS: BP 146/107
[2023-02-20 03:00] VITALS: BP 147/104
[2023-02-20 04:28] LABS: HEMATOCRIT 43.7 % (42-54); MEAN CORPUSCULAR HEMOGLOBIN 31.8 pg (27.0-33.0); MEAN CORPUSCULAR HGB CONC 33.9 g/dL (32.0-36.0); MEAN CORPUSCULAR VOLUME 93.8 fL (79-99); RED BLOOD CELL COUNT(AUTO) 4.66 MIL/uL (4.50-6.20); RED CELL DISTRIBUTION WIDTH 13.5 % (11.0-15.5); WHITE BLOOD COUNT (AUTO) 11.1 K/uL (4.8-10.8)
[2023-02-20 05:05] LABS: INR 1.08 (0.85-1.15); PROTHROMBIN TIME 12.5 SEC (9.6-11.6)
[2023-02-20 05:15] LABS: ALBUMIN 2.9 g/dL (3.5-5.0); CREATININE 0.8 mg/dL (0.5-1.5); MAGNESIUM 1.8 mg/dL (1.80-2.40); POTASSIUM 5.1 mmol/L (3.5-5.1)
[2023-02-20] MEDS ORDERED: WARFARIN SODIUM 10 MG TABLET PO SCH (08:00)
[2023-02-20 08:57] VITALS: BP 133/87
[2023-02-20] MEDS: POTASSIUM CHLORIDE 10MEQ SR TAB PO SCH (09:00)
[2023-02-20] MEDS: COLCHICINE 0.6 MG TABLET PO SCH (09:04)
[2023-02-20] MEDS: FAMOTIDINE 20MG TAB PO SCH (09:04)
[2023-02-20] MEDS: SACUBITRIL/VALSARTAN 1 EACH TABLET PO SCH (09:05)
[2023-02-20] MEDS: CHLORDIAZEPOXIDE HCL 25 MG CAP PO SCH (09:05)
[2023-02-20] MEDS: FUROSEMIDE 20 MG TABLET PO SCH (09:05)
[2023-02-20] MEDS: SOLU-MEDROL 40MG VIAL IVP SCH (09:13)
[2023-02-20] MEDS: WARFARIN SODIUM 7.5 MG TAB PO SCH (09:14)
[2023-02-20] MEDS ORDERED: METOPROLOL SUCCINATE 50 MG TAB.SR.24H PO ONE (10:55)
[2023-02-20] MEDS ORDERED: METOPROLOL SUCCINATE 50 MG TAB.SR.24H PO SCH (11:00)
== END 2023-02-20 14:15 | disposition home or self-care (01) | DRG 309 ==
LOC: EDH 21:44 → EDHIP 21:45 → 2DH 02-16 18:16
PROVIDERS: ADMIT Internal Medicine; ATTEND Internal Medicine
DX: I48.19 Other persistent atrial fibrillation (principal); I50.20 Unspecified systolic (congestive) heart failure; F10.229 Alcohol dependence with intoxication, unspecified; Y90.8 Blood alcohol level of 240 mg/100 ml or more; M10.9 Gout, unspecified; E66.01 Morbid (severe) obesity due to excess calories; F12.10 Cannabis abuse, uncomplicated; F14.10 Cocaine abuse, uncomplicated; I11.0 Hypertensive heart disease with heart failure; F41.9 Anxiety disorder, unspecified; W01.0XXA Fall on same level from slipping, tripping and stumbling without subsequent striking against object, initial encounter; Z91.199 Patient's noncompliance with other medical treatment and regimen due to unspecified reason; Z79.01 Long term (current) use of anticoagulants; Y93.89 Activity, other specified; Y99.8 Other external cause status; Z82.49 Family history of ischemic heart disease and other diseases of the circulatory system; Z83.3 Family history of diabetes mellitus; Z87.891 Personal history of nicotine dependence; Z91.148 Patient's other noncompliance with medication regimen for other reason; Y92.008 Other place in unspecified non-institutional (private) residence as the place of occurrence of the external cause; Z91.048 Other nonmedicinal substance allergy status; Z68.38 Body mass index [BMI] 38.0-38.9, adult
CPT/HCPCS: 36415; 70450; 71045; 73100; 80053; 81003; 83735; 83880; 84484; 84550; 85025; 85027; 85610; 85730; 93005; 93306; 93356; C9113; G0378; G0481; J0282; J1650; J1885; J2060; J2405; J2550; J2920; J3411; J3475; J3490; J7030

== ENCOUNTER 2023-05-01 11:18 | Emergency (ER) | payer OTHER ==
[~2023-05-01] VITALS: Ht 185.4 cm; Wt 117.9 kg
[~2023-05-01 11:18] MED LIST changes: -APIX5TAB PO; -CLIN-141 PO; -DILT120C12 PO; +FOLI0.4T6 PO; +FURO20TA4 PO; +METO-391 PO; -MUPI22OI2 TP; +SACU1TAB PO; +VITA-16 PO
[2023-05-01 12:44] LABS: BASOPHILS # (AUTO) 0.03 K/uL (0.00-0.20); BASOPHILS % (AUTO) 0.4 % (0.0-5.0); EOSINOPHILS # (AUTO) 0.03 K/uL (0.00-0.70); EOSINOPHILS % (AUTO) 0.4 % (0.0-8.0); HEMATOCRIT 38.8 % (42-54); IMMATURE GRANULOCYTE ABSOLUTE 0.04 K/uL (0-1); LYMPHOCYTES # (AUTO) 1.7 K/uL (1.0-4.8); LYMPHOCYTES % (AUTO) 19.5 % (21.0-51.0); MEAN CORPUSCULAR HEMOGLOBIN 31.5 pg (27.0-33.0); MEAN CORPUSCULAR VOLUME 92.6 fL (79-99); MONOCYTES # (AUTO) 0.7 K/uL (0.1-1.0); MONOCYTES % (AUTO) 7.7 % (3.0-13.0); NEUTROPHILS # (AUTO) 6.1 K/uL (1.8-7.7); NEUTROPHILS % (AUTO) 71.5 % (40.0-77.0); PLATELET COUNT (AUTO) 200 K/uL (130-400); RED BLOOD CELL COUNT(AUTO) 4.19 MIL/uL (4.50-6.20); RED CELL DISTRIBUTION WIDTH 13.2 % (11.0-15.5); WHITE BLOOD COUNT (AUTO) 8.5 K/uL (4.8-10.8)
[2023-05-01 12:51] LABS: CREATININE 0.6 mg/dL (0.5-1.5); POTASSIUM 3.5 mmol/L (3.5-5.1)
[2023-05-01 12:56] LABS: ALBUMIN 3.5 g/dL (3.5-5.0); BILIRUBIN,TOTAL 0.7 mg/dL (0.2-1.0)
[2023-05-01] MEDS ORDERED: FAMOTIDINE 20MG VIAL IV ONE (13:30)
[2023-05-01] MEDS ORDERED: M.V.I. IV [ADULT] 10 ML, FOLIC ACID 1 MG, THIAMINE HCL 100 MG in 0.9%NACL 1000ML 1,000 ML IV ONE (13:30)
[2023-05-01] MEDS ORDERED: METOCLOPRAMIDE 10 MG/2 ML VIAL IVP ONE (13:30)
[2023-05-01 13:40] LABS: APPEARANCE,URINE CLEAR (CLEAR); BILIRUBIN,URINE NEGATIVE (NEGATIVE); GLUCOSE, URINE (UA) NEGATIVE (NEGATIVE); KETONES,URINE NEGATIVE (NEGATIVE); LEUKOCYTE ESTERASE ,URINE NEGATIVE Leu/uL (NEGATIVE); NITRATE,URINE NEGATIVE (NEGATIVE); OCCULT BLOOD,URINE NEGATIVE (NEGATIVE); PROTEIN,URINE NEGATIVE (NEGATIVE); UROBILINOGEN,URINE 0.2 mg/dL (0.2-1.0)
[2023-05-01 13:41] LABS: ADD UA MICROSCOPIC NO; COLOR,URINE LIGHT-YELLOW (YELLOW)
[2023-05-01 13:50] LABS: AMPHET/METH SCREEN,URINE NEGATIVE (NEGATIVE); BARBITURATE SCREEN, URINE NEGATIVE (NEGATIVE); BENZODIAZEPINES SCREEN,URINE NEGATIVE (NEGATIVE); CANNABINOID SCREEN,URINE POSITIVE (NEGATIVE); COCAINE SCREEN,URINE NEGATIVE (NEGATIVE); OPIATE SCREEN,URINE NEGATIVE (NEGATIVE); PHENCYCLIDINE SCREEN,URINE NEGATIVE (NEGATIVE)
[2023-05-01 14:04] LABS: MAGNESIUM 1.8 mg/dL (1.80-2.40); THYROID STIMULATING HORMONE 1.41 uIU/mL (0.36-3.74)
[2023-05-01] MEDS ORDERED: LABETALOL 20MG SYG IV ONE ×2 (19:27→19:30)
[2023-05-01 20:29] VITALS: BP 136/90; PULSE 102; RESP 14; O2SAT 96
== END 2023-05-01 20:40 | disposition home or self-care (01) ==
LOC: EDH 11:18
DX: F19.10 Other psychoactive substance abuse, uncomplicated (principal); F10.20 Alcohol dependence, uncomplicated; I11.0 Hypertensive heart disease with heart failure; I50.9 Heart failure, unspecified; E11.9 Type 2 diabetes mellitus without complications; Z79.899 Other long term (current) drug therapy; Z98.890 Other specified postprocedural states
CPT/HCPCS: 99285; 96365; 96375; 71045; 96366; 80061; 84443; 82550; 83735; 84484; 80053; 83880; 80305; 83690; 85025; 83605; 36415; 93005; 81003; J3490 ×2; J7030; J3411; J2765

== ENCOUNTER 2023-12-04 19:57 | Inpatient (IN) | payer OTHER ==
[~2023-12-04] VITALS: Ht 182.9 cm; Wt 120.2 kg
[2023-12-04] MEDS: DILTIAZEM 25MG INJ IVP ONE ×2 (20:20→20:21)
[2023-12-04 20:23] LABS: BASOPHILS # (AUTO) 0.05 K/uL (0.00-0.20); BASOPHILS % (AUTO) 1.2 % (0.0-5.0); EOSINOPHILS # (AUTO) 0.03 K/uL (0.00-0.70); EOSINOPHILS % (AUTO) 0.7 % (0.0-8.0); HEMATOCRIT 40.7 % (42-54); IMMATURE GRANULOCYTE ABSOLUTE 0.01 K/uL (0-1); LYMPHOCYTES # (AUTO) 1.4 K/uL (1.0-4.8); LYMPHOCYTES % (AUTO) 32.9 % (21.0-51.0); MEAN CORPUSCULAR HEMOGLOBIN 31.3 pg (27.0-33.0); MEAN CORPUSCULAR HGB CONC 33.9 g/dL (32.0-36.0); MEAN CORPUSCULAR VOLUME 92.3 fL (79-99); MONOCYTES # (AUTO) 0.5 K/uL (0.1-1.0); MONOCYTES % (AUTO) 10.7 % (3.0-13.0); NEUTROPHILS # (AUTO) 2.3 K/uL (1.8-7.7); NEUTROPHILS % (AUTO) 54.3 % (40.0-77.0); PLATELET COUNT (AUTO) 260 K/uL (130-400); RED BLOOD CELL COUNT(AUTO) 4.41 MIL/uL (4.50-6.20); WHITE BLOOD COUNT (AUTO) 4.2 K/uL (4.8-10.8)
[2023-12-04 20:36] LABS: CREATININE 0.7 mg/dL (0.5-1.3); POTASSIUM 3.6 mmol/L (3.5-5.1)
[2023-12-04 20:43] LABS: B-TYPE NATRIURETIC PEPTIDE 81 pg/mL (0-100)
[2023-12-04 20:47] LABS: ALBUMIN 3.2 g/dL (3.5-5.0); BILIRUBIN,TOTAL 0.5 mg/dL (0.2-1.0)
[2023-12-04 21:29] LABS: ADD UA MICROSCOPIC NO; APPEARANCE,URINE CLEAR (CLEAR); BILIRUBIN,URINE NEGATIVE (NEGATIVE); COLOR,URINE LIGHT-YELLOW (YELLOW); GLUCOSE, URINE (UA) NEGATIVE (NEGATIVE); KETONES,URINE NEGATIVE (NEGATIVE); LEUKOCYTE ESTERASE ,URINE NEGATIVE Leu/uL (NEGATIVE); NITRATE,URINE NEGATIVE (NEGATIVE); OCCULT BLOOD,URINE NEGATIVE (NEGATIVE); PROTEIN,URINE NEGATIVE (NEGATIVE); UROBILINOGEN,URINE 0.2 mg/dL (0.2-1.0)
[2023-12-04 21:41] LABS: AMPHET/METH SCREEN,URINE NEGATIVE (NEGATIVE); BARBITURATE SCREEN, URINE NEGATIVE (NEGATIVE); BENZODIAZEPINES SCREEN,URINE NEGATIVE (NEGATIVE); CANNABINOID SCREEN,URINE POSITIVE (NEGATIVE); COCAINE SCREEN,URINE POSITIVE (NEGATIVE); OPIATE SCREEN,URINE NEGATIVE (NEGATIVE); PHENCYCLIDINE SCREEN,URINE NEGATIVE (NEGATIVE)
[2023-12-04] MEDS ORDERED: IOHEXOL 350 MG/ML 100ML INFUS..BTL IV ONE (21:55)
[2023-12-04] MEDS: ALPRAZOLAM 0.5 MG TABLET PO ONE (23:45)
[2023-12-05] VITALS (9 sets, daily range): BP systolic 125–152; BP diastolic 72–99; PULSE 54–94; RESP 17–22; O2SAT 96–99
[2023-12-05] MEDS ORDERED: PHARMACY COMMUNICATION MISC PRN (00:30)
[2023-12-05] MEDS ORDERED: ACETAMINOPHEN 325 MG TAB PO PRN (00:30)
[2023-12-05] MEDS ORDERED: POTASSIUM CHLORIDE 10% ELIXIR 20 MEQ/15 ML UDCUP PO PRN (00:30)
[2023-12-05] MEDS ORDERED: POTASSIUM CHLORIDE 20MEQ/100ML 100 ML IV PRN (00:30)
[2023-12-05] MEDS ORDERED: ONDANSETRON 4MG INJ IV PRN (00:30)
[2023-12-05] MEDS: NITROGLYCERIN 1GM OINT 1 INCH/1GM TD SCH (01:42)
[2023-12-05] MEDS: THIAMINE HCL 100 MG, FOLIC ACID 1 MG, M.V.I. IV [ADULT] 10 ML in 0.9%NACL 1000ML 1,000 ML IV SCH (01:43)
[2023-12-05] MEDS: ASPIRIN 81MG CHEW TAB PO ONE (01:45)
[2023-12-05] MEDS: MAGNESIUM 2GM PREMIX 50ML 50 ML IV PRN (01:47)
[2023-12-05] MEDS: THIAMINE HCL 100 MG/ML 2ML VIAL ONE (02:19)
[2023-12-05] MEDS: M.V.I. IV [ADULT] 10 ML VIAL IV ONE (02:20)
[2023-12-05] MEDS: FOLIC ACID 5 MG/ML VIAL ONE (02:20)
[2023-12-05] MEDS: LORAZEPAM 2 MG/ML 1 ML VIAL IVP PRN (02:42)
[2023-12-05 05:39] LABS: BASOPHILS # (AUTO) 0.05 K/uL (0.00-0.20); BASOPHILS % (AUTO) 1.2 % (0.0-5.0); EOSINOPHILS # (AUTO) 0.07 K/uL (0.00-0.70); EOSINOPHILS % (AUTO) 1.7 % (0.0-8.0); HEMATOCRIT 42.3 % (42-54); IMMATURE GRANULOCYTE ABSOLUTE 0.01 K/uL (0-1); LYMPHOCYTES # (AUTO) 1.4 K/uL (1.0-4.8); LYMPHOCYTES % (AUTO) 35.6 % (21.0-51.0); MEAN CORPUSCULAR HEMOGLOBIN 30.4 pg (27.0-33.0); MEAN CORPUSCULAR HGB CONC 33.1 g/dL (32.0-36.0); MEAN CORPUSCULAR VOLUME 91.8 fL (79-99); MONOCYTES # (AUTO) 0.4 K/uL (0.1-1.0); MONOCYTES % (AUTO) 8.9 % (3.0-13.0); NEUTROPHILS # (AUTO) 2.1 K/uL (1.8-7.7); NEUTROPHILS % (AUTO) 52.4 % (40.0-77.0); PLATELET COUNT (AUTO) 257 K/uL (130-400); RED BLOOD CELL COUNT(AUTO) 4.61 MIL/uL (4.50-6.20); RED CELL DISTRIBUTION WIDTH 13.2 % (11.0-15.5); WHITE BLOOD COUNT (AUTO) 4.1 K/uL (4.8-10.8)
[2023-12-05 06:01] LABS: CREATININE 0.6 mg/dL (0.5-1.3); MAGNESIUM 2.2 mg/dL (1.80-2.40); PHOSPHORUS 3.8 mg/dL (2.5-4.9); POTASSIUM 3.9 mmol/L (3.5-5.1)
[2023-12-05] MEDS: CHLORDIAZEPOXIDE HCL 25 MG CAP PO SCH (07:00)
[2023-12-05] MEDS: ENOXAPARIN SODIUM 40 MG/0.4 ML SYRINGE SQ SCH (09:11)
[2023-12-05] MEDS: ASPIRIN 81MG CHEW TAB PO SCH (09:11)
[2023-12-05] MEDS: FAMOTIDINE 20MG TAB PO SCH (09:11)
[2023-12-05] MEDS: METOPROLOL TARTRATE 50 MG TAB PO ONE (11:02)
[2023-12-05 11:10] LABS: INR 0.97 (0.85-1.15); PROTHROMBIN TIME 11.5 SEC (9.6-11.6)
[2023-12-05] MEDS ORDERED: SACU1TAB7 PO (13:44)
[2023-12-05] MEDS ORDERED: METO-391 PO (13:44)
[2023-12-05] MEDS ORDERED: DICL100T85 PO (13:44)
[2023-12-05] MEDS ORDERED: HYDR-3421 PO (13:44)
[2023-12-05] MEDS ORDERED: FURO20TA4 PO (13:44)
[2023-12-05] MEDS ORDERED: WARF7.5T49 PO (13:44)
[2023-12-05] MEDS ORDERED: HYDROXYZINE 25 MG TABLET PO PRN (14:00)
[2023-12-05] MEDS ORDERED: DICLOFENAC SODIUM 100 MG PO SCH (14:30)
[2023-12-05] MEDS ORDERED: SACUBITRIL/VALSARTAN 1 EACH TABLET PO SCH (21:00)
[2023-12-05] MEDS: SACUBITRIL/VALSARTAN 1 EACH TABLET PO SCH (21:12)
[2023-12-05] MEDS: METOPROLOL SUCCINATE 50 MG TAB.SR.24H PO SCH (21:12)
[2023-12-06] VITALS (8 sets, daily range): BP systolic 117–155; BP diastolic 85–109; PULSE 58–98; RESP 16–22; O2SAT 96
[2023-12-06 05:08] LABS: BASOPHILS # (AUTO) 0.05 K/uL (0.00-0.20); BASOPHILS % (AUTO) 0.9 % (0.0-5.0); EOSINOPHILS # (AUTO) 0.09 K/uL (0.00-0.70); EOSINOPHILS % (AUTO) 1.6 % (0.0-8.0); HEMATOCRIT 42.1 % (42-54); IMMATURE GRANULOCYTE ABSOLUTE 0.02 K/uL (0-1); LYMPHOCYTES # (AUTO) 1.2 K/uL (1.0-4.8); MEAN CORPUSCULAR HEMOGLOBIN 31.3 pg (27.0-33.0); MEAN CORPUSCULAR HGB CONC 33.3 g/dL (32.0-36.0); MONOCYTES # (AUTO) 0.4 K/uL (0.1-1.0); MONOCYTES % (AUTO) 6.9 % (3.0-13.0); NEUTROPHILS % (AUTO) 69.3 % (40.0-77.0); PLATELET COUNT (AUTO) 253 K/uL (130-400); RED BLOOD CELL COUNT(AUTO) 4.48 MIL/uL (4.50-6.20); RED CELL DISTRIBUTION WIDTH 12.8 % (11.0-15.5); WHITE BLOOD COUNT (AUTO) 5.8 K/uL (4.8-10.8)
[2023-12-06 05:24] LABS: ALBUMIN 2.9 g/dL (3.5-5.0); BILIRUBIN,TOTAL 1.2 mg/dL (0.2-1.0); CREATININE 0.7 mg/dL (0.5-1.3); MAGNESIUM 1.5 mg/dL (1.80-2.40); POTASSIUM 3.5 mmol/L (3.5-5.1); TOTAL PROTEIN, SERUM 6.5 g/dL (6.0-8.3)
[2023-12-06] MEDS: KCL 20 MEQ ERTAB PO PRN (06:09)
[2023-12-06] MEDS ORDERED: MAGNESIUM 2GM PREMIX 50ML 50 ML IV SCH (08:00)
[2023-12-06] MEDS ORDERED: FUROSEMIDE 20 MG TABLET PO SCH (09:00)
[2023-12-06] MEDS: VITAMIN B COMPLEX PO SCH (09:00)
[2023-12-06] MEDS: FOLIC ACID 0.4 MG PO SCH (09:00)
[2023-12-06] MEDS: FOLIC ACID PO SCH (09:00)
[2023-12-06] MEDS: KCL 20 MEQ ERTAB PO ONE (09:12)
[2023-12-06] MEDS: FUROSEMIDE 20 MG TABLET PO SCH (09:12)
[2023-12-06] MEDS: MORPHINE 4 MG SYG IV PRN (11:58)
[2023-12-06] MEDS: ACETAMINOPHEN 325 MG TAB PO PRN (14:25)
[2023-12-06] MEDS: WARFARIN SODIUM 7.5 MG TAB PO SCH (16:59)
[2023-12-06] MEDS: MORPHINE 2 MG SYG IV PRN (22:43)
[2023-12-07] VITALS: BP 108/81; PULSE 88; RESP 20
[2023-12-07 04:00] VITALS: BP 131/88; PULSE 86; RESP 20
[2023-12-07 04:35] LABS: BASOPHILS # (AUTO) 0.03 K/uL (0.00-0.20); BASOPHILS % (AUTO) 0.4 % (0.0-5.0); EOSINOPHILS # (AUTO) 0.05 K/uL (0.00-0.70); EOSINOPHILS % (AUTO) 0.7 % (0.0-8.0); HEMATOCRIT 40.5 % (42-54); IMMATURE GRANULOCYTE ABSOLUTE 0.05 K/uL (0-1); LYMPHOCYTES # (AUTO) 1.1 K/uL (1.0-4.8); LYMPHOCYTES % (AUTO) 15.2 % (21.0-51.0); MEAN CORPUSCULAR HEMOGLOBIN 30.9 pg (27.0-33.0); MEAN CORPUSCULAR HGB CONC 33.6 g/dL (32.0-36.0); MONOCYTES # (AUTO) 0.8 K/uL (0.1-1.0); MONOCYTES % (AUTO) 10.4 % (3.0-13.0); NEUTROPHILS # (AUTO) 5.4 K/uL (1.8-7.7); NEUTROPHILS % (AUTO) 72.6 % (40.0-77.0); PLATELET COUNT (AUTO) 251 K/uL (130-400); RED CELL DISTRIBUTION WIDTH 12.5 % (11.0-15.5); WHITE BLOOD COUNT (AUTO) 7.4 K/uL (4.8-10.8)
[2023-12-07 04:54] LABS: ALBUMIN 2.9 g/dL (3.5-5.0); BILIRUBIN,TOTAL 1.3 mg/dL (0.2-1.0); CREATININE 0.6 mg/dL (0.5-1.3); MAGNESIUM 1.6 mg/dL (1.80-2.40); POTASSIUM 3.6 mmol/L (3.5-5.1); TOTAL PROTEIN, SERUM 6.6 g/dL (6.0-8.3)
[2023-12-07 07:48] VITALS: BP 133/93; PULSE 88; RESP 16
[2023-12-07 09:36] VITALS: O2SAT 97
[2023-12-07 11:08] VITALS: BP 124/93; PULSE 96; RESP 16
[2023-12-07] MEDS ORDERED: FAMO20TA8 PO (12:43)
[2023-12-07] MEDS ORDERED: FURO20TA6 PO (12:43)
[2023-12-07] MEDS ORDERED: ASPI-1005 PO (12:43)
[2023-12-07] MEDS ORDERED: CHLO25CA5 PO (12:43)
== END 2023-12-07 13:00 | disposition home or self-care (01) | DRG 308 ==
LOC: EDH 19:57 → EDHIP 19:58 → 2DH 12-05 03:52
PROVIDERS: ADMIT Internal Medicine; ATTEND Internal Medicine
DX: I48.19 Other persistent atrial fibrillation (principal); I50.43 Acute on chronic combined systolic (congestive) and diastolic (congestive) heart failure; I42.9 Cardiomyopathy, unspecified; F10.229 Alcohol dependence with intoxication, unspecified; E83.42 Hypomagnesemia; F14.10 Cocaine abuse, uncomplicated; F12.10 Cannabis abuse, uncomplicated; I11.0 Hypertensive heart disease with heart failure; E11.9 Type 2 diabetes mellitus without complications; E66.01 Morbid (severe) obesity due to excess calories; F41.9 Anxiety disorder, unspecified; M10.9 Gout, unspecified; J44.9 Chronic obstructive pulmonary disease, unspecified; Z79.01 Long term (current) use of anticoagulants; Z91.148 Patient's other noncompliance with medication regimen for other reason; Z79.82 Long term (current) use of aspirin; Z82.49 Family history of ischemic heart disease and other diseases of the circulatory system; Z83.3 Family history of diabetes mellitus; Z87.891 Personal history of nicotine dependence; Z68.35 Body mass index [BMI] 35.0-35.9, adult
CPT/HCPCS: 36415; 70450; 71045; 71270; 72125; 74178; 80048; 80053; 80305; 81003; 83735; 83880; 84100; 84484; 85025; 85610; 93005; 93306; 93356; G0378; J1650; J2060; J2270; J3411; J3475; J3490; J7030; Q9967